=== PATIENT | female | born 1995 | race African-American/Black ===

== ENCOUNTER 2018-01-23 22:45 | Emergency (ER) | payer SELFPAY ==
[2018-01-23] MEDS ORDERED: ONDANSETRON PF 4 MG/2 ML VIAL. (23:08)
[2018-01-23] MEDS: ONDANSETRON PF 4 MG/2 ML VIAL. IV (23:30)
[2018-01-23 23:31] LABS: BASO % 0 % (0-3); EOS % 0 % (0-3); HEMOGLOBIN 13.3 g/dL (12.0-15.5); LYMPH # 0.7 x10^3/uL (1.0-4.8); LYMPH % 6 % (24-48); MEAN CORPUSCULAR HEMOGLOBIN 23 pg (25-35); MEAN CORPUSCULAR HGB CONC 33 g/dL (31-37); MEAN CORPUSCULAR VOLUME 71 fL (79-100); MONO # 0.3 x10^3/uL (0.0-1.1); MONO % 2 % (0-9); NEUT # 11.2 x10^3uL (1.8-7.7); NEUT % 92 % (31-73); PLATELET COUNT 352 x10^3/uL (140-400); RED BLOOD COUNT 5.75 x10^6/uL (3.50-5.40); RED CELL DISTRIBUTION WIDTH 14.1 % (11.5-14.5); WHITE BLOOD COUNT 12.3 x10^3/uL (4.0-11.0)
[2018-01-23 23:34] LABS: ADD MAN DIFF? YES
[2018-01-23] MEDS: fentaNYL PF VIAL 100 MCG/2 ML VIAL IV (23:38)
[2018-01-23] MEDS: IV NORMAL SALINE 1000ML BAG 1,000 ML IV (23:38)
[2018-01-23 23:43] LABS: NEG OBC SER NEG; POS OBC SER POS; PREG TEST PT QUAL NEGATIVE (NEG)
[2018-01-23 23:49] LABS: ANION GAP 14 (6-14); BLOOD UREA NITROGEN 13 mg/dL (7-20); BUN/CREATININE RATIO 14 (6-20); CALCIUM 9.8 mg/dL (8.5-10.1); CARBON DIOXIDE 23 mmol/L (21-32); CHLORIDE 101 mmol/L (98-107); CREATININE 0.9 mg/dL (0.6-1.0); GFR 96.6; GLUCOSE 141 mg/dL (70-99); POTASSIUM 4.1 mmol/L (3.5-5.1); SODIUM 138 mmol/L (136-145)
[2018-01-23 23:55] LABS: ALBUMIN 4.1 g/dL (3.4-5.0); ALK PHOS 62 U/L (46-116); ALT (SGPT) 25 U/L (14-59); AST (SGOT) 37 U/L (15-37); LIPASE 136 U/L (73-393); TOTAL BILIRUBIN 0.9 mg/dL (0.2-1.0); TOTAL PROTEIN 8.1 g/dL (6.4-8.2)
[2018-01-23 23:57] LABS: D-DIMER 0.33 ug/mlFEU (0.00-0.50)
[2018-01-24] LABS: ISTAT BE VENOUS -6 mmol/L (0-3); ISTAT HCO3 VEN 16 mmol/L (24-28); ISTAT PCO2 VEN 19 mmHg (41-51); ISTAT PH VEN 7.54 (7.32-7.42); ISTAT PO2 VEN 45 mmHg (20-40); ISTAT SAT O2 VEN 87 %; ISTAT TCO2 VEN 17 mmol/L (21-32); TOSPEC VEN
[2018-01-24 00:05] LABS: % LYMPHS 10 % (24-48); % MONOS 2 % (0-10); % SEGS 88 % (35-66); HYPOCHROMIA SLIGHT; MICROCYTOSIS MOD; OVALOCYTES OCC; PLT ESTIMATE ADEQUATE (ADEQUATE); POIKILOCYTOSIS SLIGHT; TEAR DROP CELLS OCC
[2018-01-24 00:27] LABS: BILIRUBIN,URINE NEGATIVE (NEG); CLARITY,URINE CLOUDY; COLOR,URINE YELLOW; GLUCOSE,URINE NEGATIVE (NEG); NITRITE,URINE NEGATIVE (NEG); PH,URINE 6.5; PROTEIN,URINE 30 mg/dL (NEG-TRACE); UROBILINOGEN,URINE 0.2 mg/dL (0.2 mg/dL)
[2018-01-24 00:27] LABS: URINE HCG POC HCG NEGATIVE (Negative)
[2018-01-24 00:36] LABS: BARBITURATES NEG (NEG); BENZODIAZEPINES NEG (NEG); CANNABINOIDS POS (NEG); COCAINE NEG (NEG); METHADONE NEG (NEG); OPIATES NEG (NEG); PHENCYCLIDINE NEG (NEG)
[2018-01-24 00:37] LABS: BACTERIA,URINE FEW /HPF (0-FEW); RBC,URINE TNTC /HPF (0-2); SQUAMOUS EPITHELIAL CELL,UR MOD /LPF
[2018-01-24 00:39] LABS: AMPHETAMINE/METHAMPHETAMINE NEG (NEG); ETHANOL, URINE NEG (NEG)
== END 2018-01-24 01:51 | disposition home or self-care (01) ==
LOC: ER 01-24 01:51
DX: K29.70 Gastritis, unspecified, without bleeding (principal)
CPT/HCPCS: 36415; 74022; 80053; 80307; 81001; 81025; 82803; 83690; 84703; 85007; 85025; 85379; 93005; 96361; 96374; 96375; 99285-25; J2060; J2405; J3010; J7030

== ENCOUNTER 2018-06-16 13:28 | Emergency (ER) | payer SELFPAY ==
[~2018-06-16] VITALS: Ht 170.2 cm; Wt 56.7 kg
[~2018-06-16 13:28] MED LIST: DICY20TA3 PO; OMEP20CA9 PO; PROM25TA10 PO
[2018-06-16] MEDS ORDERED: ONDANSETRON PF 4 MG/2 ML VIAL. IV ONE (14:30)
[2018-06-16] MEDS ORDERED: fentaNYL PF VIAL 100 MCG/2 ML VIAL IV ONE (14:30)
[2018-06-16] MEDS ORDERED: IV NORMAL SALINE 1000ML BAG 1,000 ML IV ONE (14:30)
[2018-06-16 14:35] LABS: BASO % 0 % (0-3); EOS % 0 % (0-3); HEMATOCRIT 40.4 % (36.0-47.0); HEMOGLOBIN 12.8 g/dL (12.0-15.5); LYMPH % 6 % (24-48); MEAN CORPUSCULAR HEMOGLOBIN 23 pg (25-35); MEAN CORPUSCULAR HGB CONC 32 g/dL (31-37); MEAN CORPUSCULAR VOLUME 71 fL (79-100); MONO # 0.3 x10^3/uL (0.0-1.1); MONO % 2 % (0-9); NEUT # 14.6 x10^3uL (1.8-7.7); NEUT % 91 % (31-73); PLATELET COUNT 299 x10^3/uL (140-400); RED BLOOD COUNT 5.67 x10^6/uL (3.50-5.40); RED CELL DISTRIBUTION WIDTH 14.2 % (11.5-14.5)
[2018-06-16 14:35] LABS: BILIRUBIN,URINE NEGATIVE (NEG); CLARITY,URINE CLOUDY; COLOR,URINE YELLOW; NITRITE,URINE NEGATIVE (NEG); PROTEIN,URINE NEGATIVE (NEG-TRACE); UROBILINOGEN,URINE 0.2 mg/dL (0.2 mg/dL)
[2018-06-16 14:42] LABS: CALCIUM 10.1 mg/dL (8.5-10.1); CREATININE 0.8 mg/dL (0.6-1.0); GFR 110.7; POTASSIUM 3.4 mmol/L (3.5-5.1)
[2018-06-16] MEDS ORDERED: IOHEXOL 240 MG/ML 50ML VIAL. PO ONE (14:45)
[2018-06-16] MEDS ORDERED: IOHEXOL 300 MG/ML 100ML VIAL. IV ONE ×2 (14:45→15:00)
[2018-06-16] MEDS ORDERED: CONTRAST GIVEN. MC PRN ×2 (14:45→15:00)
[2018-06-16 14:47] LABS: ALBUMIN 4.4 g/dL (3.4-5.0); TOTAL BILIRUBIN 0.7 mg/dL (0.2-1.0); TOTAL PROTEIN 8.8 g/dL (6.4-8.2)
[2018-06-16 14:53] LABS: BACTERIA,URINE FEW /HPF (0-FEW); RBC,URINE 0 /HPF (0-2); SQUAMOUS EPITHELIAL CELL,UR FEW /LPF
[2018-06-16] MEDS ORDERED: IOHEXOL 300 MG/ML 50 ML VIAL. PO ONE (15:00)
[2018-06-16 15:58] LABS: BARBITURATES NEG (NEG); BENZODIAZEPINES NEG (NEG); CANNABINOIDS POS (NEG); COCAINE NEG (NEG); METHADONE NEG (NEG); OPIATES NEG (NEG); PHENCYCLIDINE NEG (NEG)
[2018-06-16 16:00] LABS: AMPHETAMINE/METHAMPHETAMINE NEG (NEG)
--- NOTE | 2018-06-16 16:01 | RAD ---
PQRS Compliance Statement: One or more of the following individualized dose reduction techniques were utilized for this examination: 1. Automated exposure control 2. Adjustment of the mA and/or kV according to patient size 3. Use of iterative reconstruction technique CT ABD PELV W/ IV CONTRST ONLY Clinical Indication: abdominal pain, TODAY, Comparison: None. Technique: Helical CT imaging of the abdomen and pelvis is performed after 75 cc of Omnipaque 300 IV contrast. Patient unable to drink oral contrast. Findings: Lung bases clear. Cardiac size normal. There is a 1.5 cm cystic lesion in between the left hepatic lobe and the spleen, probably arising from one of these organs. Liver and spleen otherwise homogeneous. The gallbladder, pancreas, adrenal glands, and abdominal aorta caliber are normal. Kidneys enhance symmetrically, no hydronephrosis. Small cyst upper pole of right kidney. Stomach unremarkable. No dilated small bowel. Colon is not well distended, limiting evaluation. No definite colon wall thickening. The appendix is not identified, no secondary signs of appendicitis. No abdominal free fluid. Urinary bladder is normal. Retroverted uterus. There is a 2.2 cm rim-enhancing right ovary functional cyst. Mild right adnexal free fluid. Trace pelvic free fluid. No acute bone abnormality. IMPRESSION: 1. No acute abdominal or pelvic abnormality. 2. Small rim-enhancing right ovary functional cyst and mild right adnexal free fluid. Findings are probably physiologic. Electronically signed by: Shay Rivera MD (06/16/2018 3:57 PM) [id number]
[2018-06-16 16:28] LABS: % LYMPHS 8 % (24-48); % MONOS 2 % (0-10); % SEGS 90 % (35-66)
[2018-06-16 16:30] LABS: HYPOCHROMIA MOD; MICROCYTOSIS MOD; PLT ESTIMATE ADEQUATE (ADEQUATE)
[2018-06-16] MEDS ORDERED: ONDA4TAB10 SL (16:51)
--- NOTE | 2018-06-16 16:52 | PHYS DOC ---
Past Medical History Past Medical History: No Pertinent History Past Surgical History: No Surgical History Alcohol Use: None Drug Use: None Adult General Chief Complaint Chief Complaint: ABDOMINAL PAIN HPI HPI Patient is a 22 year old [f__sex] who presents with [] Review of Systems Review of Systems Constitutional: Denies fever or chills [] Eyes: Denies change in visual acuity, redness, or eye pain [] HENT: Denies nasal congestion or sore throat [] Respiratory: Denies cough or shortness of breath [] Cardiovascular: No additional information not addressed in HPI [] GI: Denies abdominal pain, nausea, vomiting, bloody stools or diarrhea [] : Denies dysuria or hematuria [] Musculoskeletal: Denies back pain or joint pain [] Integument: Denies rash or skin lesions [] Neurologic: Denies headache, focal weakness or sensory changes [] Endocrine: Denies polyuria or polydipsia [] All other systems were reviewed and found to be within normal limits, except as documented in this note. Current Medications Current Medications Current Medications Medications (Trade) Dose Ordered Sig/Frances Start Time Stop Time Status Last Admin Dose Admin Fentanyl Citrate (Fentanyl 2ml Vial) 50 mcg 1X ONCE 06/16/18 14:30 06/16/18 14:31 DC 06/16/18 14:40 50 MCG Info (CONTRAST GIVEN -- Rx MONITORING) 1 each PRN DAILY PRN 06/16/18 15:00 06/18/18 14:59 Iohexol (Omnipaque 240 Mg/ml) 50 ml 1X ONCE 06/16/18 14:45 06/16/18 14:46 DC Iohexol (Omnipaque 300 Mg/ml) 50 ml 1X ONCE 06/16/18 15:00 06/16/18 15:01 DC Ondansetron HCl (Zofran) 4 mg 1X ONCE 06/16/18 14:30 06/16/18 14:31 DC 06/16/18 14:39 4 MG Sodium Chloride 1,000 ml @ 1,000 mls/hr 1X ONCE 06/16/18 14:30 06/16/18 15:29 DC 06/16/18 14:40 1,000 MLS/HR Allergies Allergies Allergies Coded Allergies Type Severity Reaction Last Updated Verified No Known Drug Allergies 10/19/15 No Physical Exam Physical Exam Constitutional: Well developed, well nourished, no acute distress, non-toxic appearance. [] HENT: Normocephalic, atraumatic, bilateral external ears normal, oropharynx moist, no oral exudates, nose normal. [] Eyes: PERRLA, EOMI, conjunctiva normal, no discharge. [] Neck: Normal range of motion, no tenderness, supple, no stridor. [] Cardiovascular:Heart rate regular rhythm, no murmur [] Lungs & Thorax: Bilateral breath sounds clear to auscultation [] Abdomen: Bowel sounds normal, soft, no tenderness, no masses, no pulsatile masses. [] Skin: Warm, dry, no erythema, no rash. [] Back: No tenderness, no CVA tenderness. [] Extremities: No tenderness, no cyanosis, no clubbing, ROM intact, no edema. [] Neurologic: Alert and oriented X 3, normal motor function, normal sensory function, no focal deficits noted. [] Psychologic: Affect normal, judgement normal, mood normal. [] Current Patient Data Vital Signs Vital Signs Date Time Temp Pulse Resp B/P (MAP) Pulse Ox O2 Delivery O2 Flow Rate FiO2 06/16/18 13:55 98.4 88 20 141/80 (100) 100 Room Air 98.4 Lab Values Laboratory Tests Test 06/16/18 13:55 06/16/18 14:04 06/16/18 14:12 Urine Collection Type Unknown Urine Color Yellow Urine Clarity Cloudy Urine pH 8.0 Urine Specific [place] 1.025 Urine Protein Negative mg/dL (NEG-TRACE) Urine Glucose (UA) Negative mg/dL (NEG) Urine Ketones (Stick) Trace mg/dL (NEG) Urine Blood Negative (NEG) Urine Nitrite Negative (NEG) Urine Bilirubin Negative (NEG) Urine Urobilinogen Dipstick 0.2 mg/dL (0.2 mg/dL) Urine Leukocyte Esterase Small (NEG) Urine RBC 0 /HPF (0-2) Urine WBC 5-10 /HPF (0-4) Urine Squamous Epithelial Cells Few /LPF Urine Bacteria Few /HPF (0-FEW) Urine Mucus Slight /LPF Urine Opiates Screen Neg (NEG) Urine Methadone Screen Neg (NEG) Urine Barbiturates Neg (NEG) Urine Phencyclidine Screen Neg (NEG) Urine Amphetamine/Methamphetamine Neg (NEG) Urine Benzodiazepines Screen Neg (NEG) Urine Cocaine Screen Neg (NEG) Urine Cannabinoids Screen Pos (NEG) Urine Ethyl Alcohol Neg (NEG) POC Urine HCG, Qualitative Hcg negative (Negative) White Blood Count 16.0 x10^3/uL (4.0-11.0) H Red Blood Count 5.67 x10^6/uL (3.50-5.40) H Hemoglobin 12.8 g/dL (12.0-15.5) Hematocrit 40.4 % (36.0-47.0) Mean Corpuscular Volume 71 fL (79-100) L Mean Corpuscular Hemoglobin 23 pg (25-35) L Mean Corpuscular Hemoglobin Concent 32 g/dL (31-37) Red Cell Distribution Width 14.2 % (11.5-14.5) Platelet Count 299 x10^3/uL (140-400) Neutrophils (%) (Auto) 91 % (31-73) H Lymphocytes (%) (Auto) 6 % (24-48) L Monocytes (%) (Auto) 2 % (0-9) Eosinophils (%) (Auto) 0 % (0-3) Basophils (%) (Auto) 0 % (0-3) Neutrophils # (Auto) 14.6 x10^3uL (1.8-7.7) H Lymphocytes # (Auto) 1.0 x10^3/uL (1.0-4.8) Monocytes # (Auto) 0.3 x10^3/uL (0.0-1.1) Eosinophils # (Auto) 0.0 x10^3/uL (0.0-0.7) Basophils # (Auto) 0.0 x10^3/uL (0.0-0.2) Segmented Neutrophils % 90 % (35-66) H Lymphocytes % 8 % (24-48) L Monocytes % 2 % (0-10) Platelet Estimate Adequate (ADEQUATE) Hypochromasia Mod Microcytosis Mod Sodium Level 139 mmol/L (136-145) Potassium Level 3.4 mmol/L (3.5-5.1) L Chloride Level 101 mmol/L (98-107) Carbon Dioxide Level 25 mmol/L (21-32) Anion Gap 13 (6-14) Blood Urea Nitrogen 12 mg/dL (7-20) Creatinine 0.8 mg/dL (0.6-1.0) Estimated GFR (Cockcroft-Gault) 110.7 BUN/Creatinine Ratio 15 (6-20) Glucose Level 121 mg/dL (70-99) H Calcium Level 10.1 mg/dL (8.5-10.1) Total Bilirubin 0.7 mg/dL (0.2-1.0) Aspartate Amino Transferase (AST) 26 U/L (15-37) Alanine Aminotransferase (ALT) 27 U/L (14-59) Alkaline Phosphatase 64 U/L (46-116) Total Protein 8.8 g/dL (6.4-8.2) H Albumin 4.4 g/dL (3.4-5.0) Albumin/Globulin Ratio 1.0 (1.0-1.7) Laboratory Tests 06/16/18 14:12 Laboratory Tests 06/16/18 14:12 EKG EKG [] Radiology/Procedures Radiology/Procedures [] Course & Med Decision Making Course & Med Decision Making Pertinent Labs and Imaging studies reviewed. (See chart for details) [] Dragon Disclaimer Dragon Disclaimer This electronic medical record was generated, in whole or in part, using a voice recognition dictation system. Departure Departure Impression: Primary Impression: Cannabis hyperemesis syndrome concurrent with and due to cannabis abuse Additional Impression: Ovarian cyst Disposition: 01 HOME, SELF-CARE Condition: STABLE Referrals: Steven BROOKS MD (PCP) HEIDY FRAUSTO Jr, MD Patient Instructions: Marijuana Abuse and Chemical Dependency, Ovarian Cyst Additional Instructions: Take the medication as prescribed. Follow-up with your primary care provider for further evaluation of your GI symptoms. Do not smoke marijuana. This is known to cause hyperemesis syndromes. Follow-up with gynecology for further evaluation of your ovarian cyst. You may take Tylenol or ibuprofen for pain. Scripts Ondansetron (ZOFRAN ODT) 4 Mg Tab.rapdis 1 TAB SL Q8HRS, #10 TAB Prov: MAL HERR APRN 06/16/18 Problem Qualifiers MAL HERR APRN Jun 16, 2018 16:52
[2018-06-16 17:00] VITALS: BP 102/53
== END 2018-06-16 17:05 | disposition home or self-care (01) ==
LOC: ER 13:28
DX: F12.188 Cannabis abuse with other cannabis-induced disorder (principal); R11.10 Vomiting, unspecified; N83.201 Unspecified ovarian cyst, right side
CPT/HCPCS: 36415; 74177; 80053; 80307; 81001; 81025; 85007; 85025; 87086; 96361; 96374; 96375; 99285; J2405; J3010; J7030; Q9967; G0479

== ENCOUNTER 2020-04-05 18:08 | Emergency (ER) | payer OTHER ==
[~2020-04-05] VITALS: Ht 170.2 cm; Wt 54.0 kg
[~2020-04-05 18:08] MED LIST changes: +OMEP20CA16 PO; -OMEP20CA9 PO; +ONDA4TAB10 SL
[2020-04-05 18:43] VITALS: BP 123/73
[2020-04-05] MEDS ORDERED: AZITHROMYCIN 250 MG TABLET. PO ONE (19:00)
[2020-04-05] MEDS ORDERED: ONDANSETRON ODT 4 MG TAB.RAPDIS. PO ONE (19:00)
[2020-04-05] MEDS ORDERED: cefTRIAXone IM 250 MG VIAL IM ONE (19:00)
[2020-04-05 19:04] LABS: BILIRUBIN,URINE NEGATIVE (NEG); CLARITY,URINE CLEAR; COLOR,URINE YELLOW; NITRITE,URINE NEGATIVE (NEG); PH,URINE 7.5 (<5.0-8.0); PROTEIN,URINE NEGATIVE (NEG-TRACE)
--- NOTE | 2020-04-05 19:07 | PHYS DOC ---
Past Medical History Past Medical History: No Pertinent History (CABRERA SENA SIEVE MAKER) Past Surgical History: No Surgical History (CABRERA SENA APRN) Smoking Status: Never Smoker Alcohol Use: None Drug Use: None (CABRERA SENA APRN) General Adult EDM: Chief Complaint: SEXUALLY TRANSMITTED DISEASE HPI: HPI: Patient is a 24 year old female who presents with states that she had intercourse with a partner that came back positive for gonorrhea couple weeks ago. She is currently on her menstrual period. She denies dysuria, vaginal discharge, abdominal pain, nausea, vomiting, diarrhea, fever, back pain. Patient states she would like to be treated prophylactically for sexually transmitted diseases. Patient denies any pain. (CABRERA SENA SIEVE MAKER) Review of Systems: Review of Systems: Constitutional: Denies fever or chills. [] Eyes: Denies change in visual acuity. [] HENT: Denies nasal congestion or sore throat. [] Respiratory: Denies cough or shortness of breath. [] Cardiovascular: Denies chest pain or edema. [] GI: Denies abdominal pain, nausea, vomiting, bloody stools or diarrhea. [] : Denies dysuria. Sexually transmitted disease exposure. [] Musculoskeletal: Denies back pain or joint pain. [] Integument: Denies rash. [] Neurologic: Denies headache, focal weakness or sensory changes. [] Endocrine: Denies polyuria or polydipsia. [] Lymphatic: Denies swollen glands. [] Psychiatric: Denies depression or anxiety. [] (CABRERA SENA SIEVE MAKER) Heart Score: Risk Factors: Risk Factors: DM, Current or recent (<one month) smoker, HTN, HLP, family history of CAD, obesity. Risk Scores: Score 0 - 3: 2.5% MACE over next 6 weeks - Discharge Home Score 4 - 6: 20.3% MACE over next 6 weeks - Admit for Clinical Observation Score 7 - 10: 72.7% MACE over next 6 weeks - Early Invasive Strategies (CABRERA SENA SIEVE MAKER) Current Medications: Current Medications Medications (Trade) Dose Ordered Sig/Frances Start Time Stop Time Status Last Admin Dose Admin Azithromycin (Zithromax) 1,000 mg 1X ONCE 04/05/20 19:00 04/05/20 19:02 DC Ceftriaxone Sodium (Rocephin Im) 250 mg 1X ONCE 04/05/20 19:00 04/05/20 19:02 DC Ondansetron HCl (Zofran Odt) 4 mg 1X ONCE 04/05/20 19:00 04/05/20 19:02 DC (CABRERA SENA APRN) Allergies: Allergies: Allergies Coded Allergies Type Severity Reaction Last Updated Verified No Known Drug Allergies 10/19/15 No (CABRERA SENA APRN) Physical Exam: PE: Constitutional: Well developed, well nourished, no acute distress, non-toxic appearance. [] HENT: Normocephalic, atraumatic, bilateral external ears normal, oropharynx moist, no oral exudates, nose normal. [] Eyes: PERRLA, EOMI, conjunctiva normal, no discharge. [] Neck: Normal range of motion, no tenderness, supple, no stridor. [] Cardiovascular:Heart rate regular rhythm, no murmur [] Lungs & Thorax: Bilateral breath sounds clear to auscultation [] Abdomen: Bowel sounds normal, soft, no tenderness, no masses, no pulsatile masses. [] Skin: Warm, dry, no erythema, no rash. [] Back: No tenderness, no CVA tenderness. [] Extremities: No tenderness, no cyanosis, no clubbing, ROM intact, no edema. [] Neurologic: Alert and oriented X 3, normal motor function, normal sensory function, no focal deficits noted. [] Psychologic: Affect normal, judgement normal, mood normal. Normal physical exam [] (ACBRERA SENA APRN) Current Patient Data: Labs: Laboratory Tests Test 04/05/20 18:38 POC Urine HCG, Qualitative Hcg negative (Negative) Vital Signs: Vital Signs Date Time Temp Pulse Resp B/P (MAP) Pulse Ox O2 Delivery O2 Flow Rate FiO2 04/05/20 18:43 98.3 85 18 123/73 (90) 98 Room Air 98.3 (CABRERA SENA APRN) EKG: EKG: [] (CABRERA SENA APRN) Radiology/Procedures: Radiology/Procedures: [] (CABRERA SENA APRN) Course & Med Decision Making: Course & Med Decision Making Pertinent Labs and Imaging studies reviewed. (See chart for details) Alert and oriented. Speaks in full complete sentences. Abdomen soft and nontender. Patient is treated prophylactically for chlamydia and gonorrhea today in the ED. See HPI. Patient positive for bacterial vaginosis. Pelvic Exam: Aviation Manager present Abdomen: Nontender External Genitalia: Normal Skin Speculum: Normal vaginal mucosa, normal bloody cervical discharge Bimanual: No adnexal masses or tenderness, No CMT [] (CABRERA SENA APRN) Course & Med Decision Making I have reviewed the PA/EPIC INTERFACE ANALYST's note and Plan of Care. I was available for consultation as needed during the patient's visit in the emergency department. I agree with the clinical impression, plans and disposition. (VANI DUNBAR MD) Dragon Disclaimer: Dragon Disclaimer: This electronic medical record was generated, in whole or in part, using a voice recognition dictation system. (CABRERA SENA APRN) Departure Departure Impression: Primary Impression: Bacterial vaginosis Additional Impression: Sexually transmitted disease exposure Disposition: HOME, SELF-CARE Condition: STABLE Referrals: Steven BROOKS MD (PCP) Patient Instructions: Bacterial Vaginosis, Sexually Transmitted Disease Additional Instructions: Follow up with a gynecologists if needed. Take medications as prescribed with food. Remember you will be called in 48 hours only if your chlamydia or gonorrhea comes back positive. Scripts Metronidazole (METRONIDAZOLE) 500 Mg Tablet 1 TAB PO BID for 7 Days, #14 TAB 0 Refills Prov: CABRERA SENA APRN 04/05/20 Justicifation of Admission Dx: Justifications for Admission: Justification of Admission Dx: N/A (CABRERA SENA APRN) CABRERA SENA APRN Apr 05, 2020 19:07 VANI DUNBAR MD Apr 05, 2020 21:31
[2020-04-05 19:09] LABS: SQUAMOUS EPITHELIAL CELL,UR FEW /LPF
[2020-04-05 19:10] LABS: BACTERIA,URINE 0 /HPF (0-FEW); RBC,URINE >40 /HPF (0-2); WBC,URINE 20-40 /HPF (0-4)
[2020-04-05] MEDS ORDERED: METR-34 PO (19:26)
== END 2020-04-05 19:56 | disposition home or self-care (01) ==
LOC: ER 18:08
DX: N76.0 Acute vaginitis (principal); B96.89 Other specified bacterial agents as the cause of diseases classified elsewhere; Z20.2 Contact with and (suspected) exposure to infections with a predominantly sexual mode of transmission
CPT/HCPCS: 81001; 81025; 87086; 87491; 87591; 96372; 99284; J0696; Q0111